=== PATIENT | female | born 1995 | race Caucasian/White ===

== ENCOUNTER 2019-08-07 17:56 | Emergency (ER) | payer BC, OTHER ==
[~2019-08-07] VITALS: Ht 152 cm; Wt 62.6 kg
[2019-08-07] MEDS ORDERED: KETOROLAC 30 MG/ML VIAL IM STA (18:10)
--- NOTE | 2019-08-07 18:17 | ED GI ---
General Chief Complaint: Abdominal/GI Problems Stated Complaint: ABD PAIN Nursing Triage Note: PT REPORTS ABDOMINAL PAIN FOR ABOUT AN HOUR NOW. DENIES ANY OTHER SYMPTOMS SUCH VAGINAL DISCHARGE OR BOWEL ISSUES PT REPORT SHE HAS NOT BEEN SEXUALLY ACTIVE IN "AWHILE". REPORTS FLU-LIKE SYMPTOMS ARE IN HER HOME PRESENTLY. Sepsis Screen: No Definite Risk Source of Information: Patient Exam Limitations: No Limitations History of Present Illness Date Seen by Provider: Aug 07, 2019 Time Seen by Provider: 18:00 Initial Comments Here with report of low abdominal pain in the suprapubic region over the last hour or 2. States that it's like her period pain but never had anything this bad of regarding that. She has history of tubal ligation. She did have delivery and September. She is not breast-feeding. Denies fever or chills but states that she just got over some flulike symptoms. Denies nausea, vomiting, diarrhea, dysuria or vaginal discharge. Timing/Duration: 1-3 Hours Severity/Quality: Moderate Location: Suprapubic Radiation: RLQ, LLQ Activities at Onset: None Modifying Factors: Improves With Resting Associated Symptoms: No Back Pain, No Chest Pain, No Fever/Chills, No Nausea/Vomiting, No Weakness Allergies and Home Medications Allergies Coded Allergies: amoxicillin (Verified Adverse Reaction, Mild, 08/07/19) Yeast Infection clavulanic acid (Verified Adverse Reaction, Mild, 08/07/19) Yeast Infection Patient Home Medication List Home Medication List Reviewed: Yes Review of Systems Review of Systems Constitutional: see HPI; No chills, No fever EENTM: No Symptoms Reported Respiratory: No Symptoms Reported Cardiovascular: No Symptoms Reported Gastrointestinal: See HPI, Abdominal Pain; Denies Constipated, Denies Diarrhea, Denies Nausea, Denies Vomiting Genitourinary: No Symptoms Reported Musculoskeletal: no symptoms reported Psychiatric/Neurological: No Symptoms Reported Past [id number] Hx Past Med/Social Hx: Reviewed Nursing Past Med/Soc Hx Patient Social History Alcohol Use: Denies Use Recreational Drug Use: No Smoking Status: Current Everyday Smoker 2nd Hand Smoke Exposure: No Recent Foreign Travel: No Contact w/Someone Who Travel: No Recent Infectious Disease Expo: No Recent Hopitalizations: No Physical Abuse: No Sexual Abuse: No Mistreated: No Fear: No Seasonal Allergies Seasonal Allergies: No Past Medical History Surgeries: Yes Tubal Ligation Respiratory: No Cardiac: No Neurological: No Genitourinary: No Gastrointestinal: No Musculoskeletal: No Endocrine: No HEENT: No Cancer: No Psychosocial: No Integumentary: No Blood Disorders: No Family Medical History Reviewed Nursing Family Hx No Pertinent Family Hx Physical Exam Vital Signs Vital Signs - First Documented 08/07/19 18:05 Temp 36.3 Pulse 82 Resp 18 B/P (MAP) 119/94 (102) Pulse Ox 100 O2 Delivery Room Air Capillary Refill : Less Than 3 Seconds Height/Weight/BMI Height: '" Weight: lbs. oz. kg; 27.00 BMI Method: General Appearance: WD/WN, no apparent distress Respiratory: lungs clear, normal breath sounds, no respiratory distress Cardiovascular: regular rate, rhythm, no murmur Gastrointestinal: soft; No guarding, No rebound; tenderness (suprapubic) Extremities: non-tender, normal inspection Back: normal inspection, no CVA tenderness, no vertebral tenderness Neurologic/Psychiatric: alert, oriented x 3 Skin: normal color, warm/dry Progress/Results/Core Measures Results/Orders Lab Results Laboratory Tests Test 08/07/19 18:02 Range/Units Urine Color YELLOW Urine Clarity CLEAR Urine pH 6.0 5-9 Urine Specific [place] 1.015 L 1.016-1.022 Urine Protein NEGATIVE NEGATIVE Urine Glucose (UA) NEGATIVE NEGATIVE Urine Ketones NEGATIVE NEGATIVE Urine Nitrite NEGATIVE NEGATIVE Urine Bilirubin NEGATIVE NEGATIVE Urine Urobilinogen 0.2 < = 1.0 MG/DL Urine Leukocyte Esterase 1+ H NEGATIVE Urine RBC (Auto) NEGATIVE NEGATIVE Urine RBC NONE /HPF Urine WBC 10-25 H /HPF Urine Squamous Epithelial Cells 10-25 H /HPF Urine Crystals NONE /LPF Urine Bacteria TRACE /HPF Urine Casts NONE /LPF Urine Mucus NEGATIVE /LPF Urine Culture Indicated YES Urine Test NEGATIVE NEGATIVE My Orders Orders - CORRIE CISNEROS MD Hcg,Qualitative Urine (08/07/19 18:10) Ua Culture If Indicated (08/07/19 18:10) Ketorolac Injection (Toradol Injection) (08/07/19 18:10) Urine Culture (08/07/19 18:02) Vital Signs/I&O 08/07/19 18:05 Temp 36.3 Pulse 82 Resp 18 B/P (MAP) 119/94 (102) Pulse Ox 100 O2 Delivery Room Air Blood Pressure Mean: 102 POS Progress Progress Note : Progress Note Seen and evaluated. We will start with UA and UCG and give Toradol 30 mg IM. Monitor patient. 1857: Pain is completely resolved. Patient able to walk without difficulty. UA questionably positive. We will go ahead and initiate Keflex twice a day 3 days pending culture. I did discuss with the patient regarding bowel habits as she has some abnormal habits and that she only goes once or twice a week. We discussed increasing fiber. We discussed several options for further evaluation currently. This included labs or labs and CT or watching at home and returning for worsening. Ultimately decided on watching at home and returning if worsening or we will do further evaluation. This is unlikely that she is markedly resolved currently. I think this is a reasonable plan. Discharged home with return precautions. Patient and family verbalize understanding instructions and agreement with plan. Departure Impression Primary Impression: Lower abdominal pain Additional Impression: Urinary tract infection Qualified Codes: N30.00 - Acute cystitis without hematuria Disposition: HOME, SELF-CARE Condition: Improved Departure-Patient Inst. Decision time for Depature: 19:00 Referrals: CELE MICHEL MD (PCP) Primary Care Physician POP ROLON APRN (Family) Primary Care Physician Patient Instructions: Acute Abdomen (Belly Pain), Adult (DC), Urinary Tract Infection, Adult (DC) Add. Discharge Instructions: All discharge instructions reviewed with patient and/or family. Voiced understanding. Drink plenty of fluids and he should add fiber to your diet. You may do this simply by having bran cereal every morning. For pain, you may take Tylenol/acetaminophen 1000 mg every 8 hours as needed for pain. You may also take ibuprofen 600 mg every 8 hours as needed for pain. Return for worse pain, weakness, breathing problems or fever or other concerns as needed. Scripts Cephalexin (Cephalexin) 500 Mg Tablet 500 MG PO BID, #6 TAB 0 Refills Prov: CORRIE CISNEROS MD 08/07/19 CORRIE CISNEROS MD Aug 07, 2019 18:17 POS
[2019-08-07 18:27] LABS: BILIRUBIN,URINE NEGATIVE (NEGATIVE); CLARITY,URINE CLEAR; COLOR,URINE YELLOW; GLUCOSE, URINE (UA) NEGATIVE (NEGATIVE); KETONES,URINE NEGATIVE (NEGATIVE); NITRITE,URINE NEGATIVE (NEGATIVE); PROTEIN,URINE NEGATIVE (NEGATIVE)
[2019-08-07 18:28] LABS: BACTERIA,URINE TRACE /HPF; LEUKOCYTE ESTERASE ,URINE 1+ (NEGATIVE)
[2019-08-07] MEDS ORDERED: CEPH500T PO (19:03)
[2019-08-07 19:09] VITALS: BP 113/70
== END 2019-08-07 19:09 | disposition home or self-care (01) ==
LOC: ER FS 17:57
DX: N39.0 Urinary tract infection, site not specified (principal); F17.200 Nicotine dependence, unspecified, uncomplicated; Z98.51 Tubal ligation status; Z88.1 Allergy status to other antibiotic agents
CPT/HCPCS: 81000; 84703; 87088; 99284